=== PATIENT | female | born 1980 | race Two or more races ===

== ENCOUNTER 2018-04-12 12:00 | Inpatient (IN) | payer OTHER ==
[~2018-04-12] VITALS: Ht 167.6 cm; Wt 133.4 kg
[2018-04-12] MEDS ORDERED: LOTREL 5-20 MG1 CAP PO (12:14)
[2018-04-12] MEDS ORDERED: GLUMETZA500 MG PO (12:15)
[2018-04-12] MEDS ORDERED: LIPITOR20 MG PO (12:15)
[2018-04-12] MEDS ORDERED: SYNTROID PO (12:15)
[2018-04-12] MEDS ORDERED: VITAMIN D310000 UNIT PO (12:16)
[2018-04-15] MEDS ORDERED: LEVO-T75 MCG PO (08:37)
== END 2018-04-17 16:08 | disposition home or self-care (01) | DRG 743 ==
LOC: SURH 04-14 07:00 → O/R 04-14 07:49 → OB/GYN 04-14 07:49 → SURH 04-14 12:00 → OB/GYN 04-14 19:12
PROVIDERS: ADMIT Obstetrics & Gynecology
PROC: 0UT70ZZ Resection of Bilateral Fallopian Tubes, Open Approach (ICD-10-PCS; 2018-04-14)
PROC: 0UT90ZZ Resection of Uterus, Open Approach (ICD-10-PCS; principal; 2018-04-14 07:00)
DX: D25.1 Intramural leiomyoma of uterus (principal); N73.6 Female pelvic peritoneal adhesions (postinfective); I10 Essential (primary) hypertension; E11.9 Type 2 diabetes mellitus without complications; E03.8 Other specified hypothyroidism